=== PATIENT | female | born 1985 | race Caucasian/White ===

== ENCOUNTER 2017-08-12 11:06 | Inpatient (IN) | payer MEDICARE, OTHER ==
[2017-08-12] MEDS ORDERED: ONDANSETRON 4MG/2ML VIAL (J2405) IV ×2 (17:00)
[2017-08-12] MEDS ORDERED: diphenhydrAMINE 50 MG CAP PO ×2 (17:00)
[2017-08-12 17:25] LABS: HEMATOCRIT 30.2 % (36.0-47.0); HEMOGLOBIN 10.1 g/dl (12.0-16.0); MEAN CORPUSCULAR HEMOGLOBIN 27.6 pg (27.0-33.0); MEAN CORPUSCULAR HGB CONC 33.4 g/dl (32.0-36.5); MEAN CORPUSCULAR VOLUME 82.5 fl (80.0-96.0); PLATELET COUNT, AUTOMATED 274 10^3/uL (150-450); RED BLOOD COUNT 3.66 10^6/uL (4.00-5.40); RED CELL DISTRIBUTION WIDTH 13.2 % (11.5-14.5); WHITE BLOOD COUNT 14.1 10^3/uL (4.0-10.0)
[2017-08-12] MEDS: BETAMETHASONE SOLUSPAN 6MG/ML INJ 5ML (J0702) IM ×2 (17:48)
[2017-08-12] MEDS: AMPICILLIN SOD 2 GM in APPROPRIATE DILUENT 20 ML IV (17:48)
[2017-08-12] MEDS: PROMETHAZINE INJ 25 MG/ML VIAL (J2550) IV ×2 (18:04)
[2017-08-12] MEDS: BUTORPHANOL 2 MG/ML INJ (J0595) IV ×2 (18:04)
[2017-08-12] MEDS: LR 1,000 ML IV ×4 (18:29→18:30)
[2017-08-12] MEDS: AMPICILLIN SOD 1 GM in APPROPRIATE DILUENT 10 ML IV (22:41)
[2017-08-12] MEDS: HYDROCORTISONE 100 MG/2 ML VIAL (J1720) IV ×2 (23:30)
[2017-08-13] MEDS: AMPICILLIN SOD 1 GM in APPROPRIATE DILUENT 10 ML IV ×2 (02:00→05:41)
[2017-08-13] MEDS: LR 1,000 ML IV ×4 (02:20→10:12)
[2017-08-13] MEDS: HYDROCORTISONE 100 MG/2 ML VIAL (J1720) IV ×2 (05:30)
== END 2017-08-13 11:35 | disposition home or self-care (01) | DRG 778 ==
LOC: M LDO 11:06 → M LDI 16:18
PROVIDERS: Obstetrics & Gynecology
DX: O60.03 Preterm labor without delivery, third trimester (principal); Z3A.36 36 weeks gestation of pregnancy; F17.210 Nicotine dependence, cigarettes, uncomplicated; O99.333 Smoking (tobacco) complicating pregnancy, third trimester; K52.9 Noninfective gastroenteritis and colitis, unspecified; O99.613 Diseases of the digestive system complicating pregnancy, third trimester

== ENCOUNTER 2017-08-13 15:45 | Outpatient (CLI) | payer OTHER ==
[2017-08-13] MEDS: BETAMETHASONE SOLUSPAN 6MG/ML INJ 5ML (J0702) IM (16:36)
== END 2017-08-13 16:55 | disposition home or self-care (01) ==
LOC: M LDO 15:45
DX: O26.893 Other specified pregnancy related conditions, third trimester (principal); Z3A.36 36 weeks gestation of pregnancy
CPT/HCPCS: J0702

== ENCOUNTER 2017-08-22 01:17 | Observation (INO) | payer MEDICARE, OTHER ==
[2017-08-22] MEDS ORDERED: LACTATED RINGER'S 1000 ML IV ×2 (07:23)
[2017-08-22] MEDS: LR 1,000 ML IV ×2 (08:31)
[2017-08-22 08:45] LABS: HEMATOCRIT 29.6 % (36.0-47.0); HEMOGLOBIN 9.7 g/dl (12.0-16.0); MEAN CORPUSCULAR HEMOGLOBIN 27.2 pg (27.0-33.0); MEAN CORPUSCULAR HGB CONC 32.8 g/dl (32.0-36.5); MEAN CORPUSCULAR VOLUME 82.9 fl (80.0-96.0); PLATELET COUNT, AUTOMATED 262 10^3/uL (150-450); RED BLOOD COUNT 3.57 10^6/uL (4.00-5.40); RED CELL DISTRIBUTION WIDTH 13.6 % (11.5-14.5); WHITE BLOOD COUNT 13.8 10^3/uL (4.0-10.0)
[2017-08-22] MEDS: diphenhydrAMINE INJ 50MG/ML VIAL (J1200) IV ×2 (10:11)
[2017-08-22] MEDS: HYDROCORTISONE 100 MG/2 ML VIAL (J1720) IV ×2 (10:26)
[2017-08-22] MEDS: NICOTINE 7 MG/24 HR TRANSDERMAL TD ×2 (11:18)
== END 2017-08-22 14:15 | disposition home or self-care (01) ==
LOC: M LDO 01:17 → M LDI 07:23
PROVIDERS: Student in an Organized Health Care Education/Training Program
DX: O47.1 False labor at or after 37 completed weeks of gestation (principal); Z3A.38 38 weeks gestation of pregnancy; O9A.213 Injury, poisoning and certain other consequences of external causes complicating pregnancy, third trimester; T38.0X5A Adverse effect of glucocorticoids and synthetic analogues, initial encounter; L50.0 Allergic urticaria; O99.613 Diseases of the digestive system complicating pregnancy, third trimester; K50.90 Crohn's disease, unspecified, without complications; O99.333 Smoking (tobacco) complicating pregnancy, third trimester; F17.210 Nicotine dependence, cigarettes, uncomplicated; Z79.899 Other long term (current) drug therapy
CPT/HCPCS: J1720

== ENCOUNTER 2017-11-13 09:24 | Outpatient (RCR) | payer MEDICARE, OTHER | END 2017-11-23 | LOC: M ST 09:24 | DX: I69.391 Dysphagia following cerebral infarction (principal); I63.9 Cerebral infarction, unspecified (principal) | CPT/HCPCS: 92507 ==

== ENCOUNTER 2017-11-19 18:02 | Emergency (ER) | payer MEDICARE, OTHER ==
[2017-11-19 17:37] LABS: BASO # 0.1 10^3/uL (0.0-0.2); BASO % 0.9 % (0.0-1.0); EOS # 0.2 10^3/uL (0.0-0.50); HEMATOCRIT 32.4 % (36.0-47.0); HEMOGLOBIN 10.1 g/dl (12.0-15.5); IMMATURE GRANULOCYTE % 0.3 % (0-3.0); LYMPH # 1.1 10^3/uL (1.5-4.5); LYMPH % 16.1 % (24.0-44.0); MEAN CORPUSCULAR HEMOGLOBIN 25.4 pg (27.0-33.0); MEAN CORPUSCULAR HGB CONC 31.2 g/dl (32.0-36.5); MEAN CORPUSCULAR VOLUME 81.6 fl (80.0-96.0); MONO # 0.4 10^3/uL (0.0-0.8); MONO % 5.5 % (0.0-5.0); NEUTROPHILS # 5.1 10^3/uL (1.8-7.7); NEUTROPHILS % 74.2 % (36.0-66.0); PLATELET COUNT, AUTOMATED 322 10^3/uL (150-450); RED BLOOD COUNT 3.97 10^6/uL (4.00-5.40); RED CELL DISTRIBUTION WIDTH 15.3 % (11.5-14.5); WHITE BLOOD COUNT 6.9 10^3/uL (4.0-10.0)
[2017-11-19 17:54] LABS: INR 2.91; PROTHROMBIN TIME 31.7 SECONDS (12.4-14.5)
[2017-11-19 17:55] LABS: PARTIAL THROMBOPLASTIN TIME 54.7 SECONDS (26.8-37.9)
[2017-11-19] MEDS ORDERED: PROHANCE 279.3MG/ML 15ML VIAL (A9576) As Ordered (18:09)
[2017-11-19 18:30] LABS: ANION GAP 9 MEQ/L (8-16); BLOOD UREA NITROGEN 13 MG/DL (7-18); CALCIUM LEVEL 8.7 MG/DL (8.5-10.1); CARBON DIOXIDE LEVEL 26 MEQ/L (21-32); CHLORIDE LEVEL 110 MEQ/L (98-107); CK-MB VALUE MASS < 1.0 NG/ML (<3.6); CPK CREATINE PHOSPHOKINASE 49 U/L (26-192); CREATININE FOR GFR 0.58 MG/DL (0.55-1.30); GLOMERULAR FILTRATION RATE > 60.0 (>60); GLUCOSE, FASTING 87 MG/DL (70-100); MB/CK RELATIVE INDEX 2.04 (< OR =4); POTASSIUM SERUM 3.7 MEQ/L (3.5-5.1); SODIUM LEVEL 145 MEQ/L (136-145); TROPONIN I < 0.02 NG/ML (< 0.10)
[2017-11-19] MEDS: ONDANSETRON 4MG/2ML VIAL (J2405) IV (20:00)
[2017-11-19] MEDS: ONDANSETRON 4 MG TAB (S0181) PO (20:30)
[2017-11-19] MEDS: MECLIZINE 25 MG TABLET PO (20:45)
== END 2017-11-19 20:48 | disposition home or self-care (01) ==
LOC: M ED 18:02
DX: R42 Dizziness and giddiness (principal); K50.90 Crohn's disease, unspecified, without complications; F17.200 Nicotine dependence, unspecified, uncomplicated; Z86.73 Personal history of transient ischemic attack (TIA), and cerebral infarction without residual deficits; Z79.899 Other long term (current) drug therapy; Z79.01 Long term (current) use of anticoagulants; Z98.890 Other specified postprocedural states; Z88.8 Allergy status to other drugs, medicaments and biological substances; Z86.2 Personal history of diseases of the blood and blood-forming organs and certain disorders involving the immune mechanism
CPT/HCPCS: A9576

== ENCOUNTER → 2017-12-03 | Outpatient (CLI) | payer MEDICARE, OTHER ==
[~2017-12-03] MED LIST: ISOVUE-370 76% 100ML VIAL (Q9967) As Ordered
== END ==
LOC: M RAD 12:33
DX: I77.74 Dissection of vertebral artery (principal)
CPT/HCPCS: Q9967

== ENCOUNTER 2018-04-09 13:07 | Inpatient (IN) | payer MEDICARE, OTHER ==
[2018-04-09] MEDS: LR 1,000 ML IV (13:40)
[2018-04-09 13:46] LABS: HEMOGLOBIN 10.7 g/dl (12.0-15.5); MEAN CORPUSCULAR HEMOGLOBIN 24.7 pg (27.0-33.0); MEAN CORPUSCULAR HGB CONC 30.6 g/dl (32.0-36.5); MEAN CORPUSCULAR VOLUME 80.8 fl (80.0-96.0); PLATELET COUNT, AUTOMATED 235 10^3/uL (150-450); RED BLOOD COUNT 4.33 10^6/uL (4.00-5.40); RED CELL DISTRIBUTION WIDTH 18.1 % (11.5-14.5); WHITE BLOOD COUNT 7.2 10^3/uL (4.0-10.0)
[2018-04-09] MEDS: BUPIVACAINE HCL 0.25% 30 ML VIAL As Ordered (13:55)
[2018-04-09 13:56] LABS: CONTROL LINE HCG INT CTR LINE PRESENT; HCG, SERUM QUALITATIVE NEGATIVE (NEGATIVE)
[2018-04-09] MEDS ORDERED: LR 1,000 ML IV ×2 (15:12→17:15)
[2018-04-09] MEDS ORDERED: LIDOCAINE 2% INJ 100 MG/5 ML SDV (FOR ANES.) As Ordered (15:23)
[2018-04-09] MEDS ORDERED: PROPOFOL 200 MG/20 ML VIAL As Ordered (15:23)
[2018-04-09] MEDS ORDERED: ONDANSETRON 4MG/2ML VIAL (J2405) As Ordered ×2 (15:23→17:05)
[2018-04-09] MEDS ORDERED: KETOROLAC 60 MG/2 ML VIAL (J1885) As Ordered (15:23)
[2018-04-09] MEDS ORDERED: ROCURONIUM BROMIDE 50 MG/5 ML VIAL As Ordered (15:23)
[2018-04-09] MEDS ORDERED: NEOSTIGMINE 10 MG/10 ML VIAL (J2710) As Ordered (15:23)
[2018-04-09] MEDS ORDERED: dexameTHASONE 4 MG/ML 1ML VIAL (J1100) As Ordered (15:23)
[2018-04-09] MEDS ORDERED: GLYCOPYRROLATE INJ 0.2 MG/ML 2 ML VIAL As Ordered (15:23)
[2018-04-09] MEDS ORDERED: fentaNYL 100 MCG/2 ML INJECTION (J3010) As Ordered (15:24)
[2018-04-09] MEDS ORDERED: MIDAZOLAM INJ 2 MG/2 ML VIAL (J2250) As Ordered (15:24)
[2018-04-09] MEDS: SILVER NITRATE APPLICATOR As Ordered (16:45)
[2018-04-09] MEDS: ONDANSETRON 4MG/2ML VIAL (J2405) IV (17:08)
[2018-04-09] MEDS ORDERED: METOCLOPRAMIDE INJ 10MG/2ML VIAL (J2765) As Ordered (17:13)
[2018-04-09] MEDS ORDERED: fentaNYL 100 MCG/2 ML INJECTION (J3010) IV (17:15)
[2018-04-09] MEDS: METOCLOPRAMIDE INJ 10MG/2ML VIAL (J2765) IV (17:15)
[2018-04-09] MEDS ORDERED: PERCOCET 5MG/325MG TAB As Ordered (18:29)
[2018-04-09] MEDS: PERCOCET 5MG/325MG TAB PO (18:30)
== END 2018-04-09 19:00 | disposition home or self-care (01) | DRG 743 ==
LOC: M SDC 19:00 → M RR INP 17:03 → M OR 13:07
PROVIDERS: Obstetrics & Gynecology
PROC: 0UT78ZZ Resection of Bilateral Fallopian Tubes, Via Natural or Artificial Opening Endoscopic (ICD-10-PCS; principal; 2018-04-09 15:00)
PROC: 0U5B7ZZ Destruction of Endometrium, Via Natural or Artificial Opening (ICD-10-PCS; 2018-04-09 15:00)
DX: N92.0 Excessive and frequent menstruation with regular cycle (principal); D64.9 Anemia, unspecified; Z30.2 Encounter for sterilization

== ENCOUNTER → 2018-08-04 | Outpatient (CLI) | payer MEDICARE, OTHER ==
[~2018-08-04] MED LIST changes: +ASPI1TAB PO; +ATOR80TA59 PO; +BUDE3CAP PO; +CYCL10TA PO; +HEPA50VL SC; +HYDR-3716 PO; +HYDR1SYR IV; +IBUP-1114 PO; -ISOVUE-370 76% 100ML VIAL (Q9967) As Ordered; +LOVE0.4I2 SUBQ; +MAXA10TA14 PO; +MECL-86 PO; +MESA24CASA PO; +METH40VIAL IV; +ONDA4TAB6 PO; +ONDA4VLL IV; +ONDA8TAB7 PO; +PRENTAB9 PO; +PROT40IN4 IV; +STEL90IN SUBQ; +SUMA50TA2 PO; +TRAM100T18 PO; +TRAM1CAP15 PO; +VITA1TAB27 PO; +WARF-23 PO; +ZOFR4TAB14 PO; +ZOFR4TAB16 PO; +[UNRECOGNIZED DRUG - CODE] IJ
--- NOTE | 2018-08-04 11:19 | REP ---
BILIARY SCAN WITH GALLBLADDER EJECTION FRACTION: 08/04/2018. Comparison: CT abdomen and pelvis 09/01/2017. Reported negative gallbladder ultrasound 1 month ago and [facility]. Clinical history: Nausea, vomiting. Evaluate for biliary disease. Findings: The patient received bolus of 6.6 mCi technetium 99m mebrofenin via an IV. Sequential 5-minute images for 1 hour were obtained. Thereafter 8 ounces of Ensure consumed just prior to a second set of 60 minutes of imaging beginning 65 minutes post tracer injection. Region of interest drawn around the gallbladder and ejection fraction calculated by a semiautomated method. Findings: Prompt fairly homogeneous tracer distribution throughout the liver with appearance of activity in the gallbladder fossa at 10 minutes and in the duodenum by 15 minutes appearance into the jejunum by 20 minutes with good washout activity from the liver and progressive increase in activity in the gallbladder fossa. The gallbladder ejection fraction is calculated at 63% for 1 hour. With this technique, normal ejection fraction is greater than 35%. Impression: 1. Homogeneous prompt tracer uptake throughout the liver with prompt appearance of activity in the gallbladder and biliary to bowel transit in 20 minutes. No biliary obstruction. 2. Gallbladder ejection fraction 63%, normal. Electronically Signed by Giovanny Curtis MD 08/04/2018 07:47 P
== END ==
LOC: M RAD 07:14
PROVIDERS: ATTEND Internal Medicine
DX: R11.0 Nausea (principal)
CPT/HCPCS: 78227; A9537; J2805

== ENCOUNTER → 2018-10-16 | Outpatient (CLI) | payer MEDICARE, OTHER ==
[~2018-10-16] MED LIST changes: -ASPI1TAB PO; +ASPI81TA26 PO; +DICY10CA13 PO; +DICY10SO PO; +DOXY-350 PO; +GABA-1171 PO; +HEPA1INJ23 SC; -HEPA50VL SC; +HYDR-4571 PO; +LOVE1INJ SC; +NORC1TAB7 PO; +VITA1CAP25 PO
--- NOTE | 2018-10-16 12:49 | REP ---
Clinical: Preoperative assessment . Comparison: 11/19/2017 . Technique: PA and lateral. Findings: The mediastinum and cardiac silhouette are normal. The lung hernandez are clear and without acute consolidation, effusion, or pneumothorax. The skeletal structures are intact and normal. Impression: 1. No acute cardiopulmonary process. Electronically Signed by Percy Lopez MD 10/16/2018 12:40 P
== END ==
LOC: M RAD 12:24
PROVIDERS: ATTEND Obstetrics & Gynecology
DX: Z01.818 Encounter for other preprocedural examination (principal); N92.1 Excessive and frequent menstruation with irregular cycle

== ENCOUNTER 2018-10-21 06:09 | Inpatient (IN) | payer MEDICARE, OTHER ==
[~2018-10-21] VITALS: Ht 157.5 cm; Wt 52.2 kg
[2018-10-21] VITALS (8 sets, daily range): BP systolic 100–109; BP diastolic 50–85
[~2018-10-21 06:09] MED LIST changes: -DICY10CA13 PO; -DICY10SO PO; -HYDR-4571 PO; -LOVE1INJ SC
[2018-10-21] MEDS ORDERED: LR 1,000 ML IV ONE (06:30)
[2018-10-21 06:46] LABS: HEMATOCRIT 40.5 % (36.0-47.0); HEMOGLOBIN 13.5 g/dl (12.0-15.5); MEAN CORPUSCULAR HEMOGLOBIN 32.5 pg (27.0-33.0); MEAN CORPUSCULAR HGB CONC 33.3 g/dl (32.0-36.5); MEAN CORPUSCULAR VOLUME 97.4 fl (80.0-96.0); PLATELET COUNT, AUTOMATED 172 10^3/uL (150-450); RED BLOOD COUNT 4.16 10^6/uL (4.00-5.40); WHITE BLOOD COUNT 9.5 10^3/uL (4.0-10.0)
[2018-10-21] MEDS ORDERED: DICY10SO PO (07:04)
[2018-10-21] MEDS ORDERED: BUPIVACAINE HCL 0.5% 30 ML VIAL As Ordered ONE (07:13)
[2018-10-21] MEDS ORDERED: fentaNYL 250 MCG/5 ML INJECTION (J3010) As Ordered ONE (07:14)
[2018-10-21] MEDS ORDERED: PROPOFOL 200 MG/20 ML VIAL As Ordered ONE (07:15)
[2018-10-21] MEDS ORDERED: MIDAZOLAM INJ 2 MG/2 ML VIAL (J2250) As Ordered ONE (07:15)
[2018-10-21] MEDS ORDERED: LIDOCAINE 2% INJ 100 MG/5 ML SDV (FOR ANES.) As Ordered ONE (07:15)
[2018-10-21] MEDS ORDERED: ROCURONIUM BROMIDE 50 MG/5 ML VIAL As Ordered ONE (07:15)
[2018-10-21 08:05] LABS: HCG, SERUM QUALITATIVE NEGATIVE (NEGATIVE)
[2018-10-21 08:09] LABS: INR 0.96; PROTHROMBIN TIME 12.9 SECONDS (12.1-14.4)
[2018-10-21 08:10] LABS: PARTIAL THROMBOPLASTIN TIME 28.3 SECONDS (25.4-37.6)
[2018-10-21] MEDS ORDERED: METOCLOPRAMIDE INJ 10MG/2ML VIAL (J2765) As Ordered ONE ×2 (08:53→09:18)
[2018-10-21] MEDS ORDERED: ONDANSETRON 4MG/2ML VIAL (J2405) As Ordered ONE (08:53)
[2018-10-21] MEDS ORDERED: KETOROLAC 60 MG/2 ML VIAL (J1885) As Ordered ONE (08:53)
[2018-10-21] MEDS ORDERED: METOPROLOL 5 MG/5 ML VIAL As Ordered ONE (09:14)
[2018-10-21] MEDS ORDERED: SUGAMMADEX SODIUM 500 MG/5 ML VIAL (BRIDION) As Ordered ONE (09:46)
[2018-10-21] MEDS ORDERED: NORCO, ANEXSIA 5/325MG TABLET (HYDROcodone/ACETAMINOPHEN) PO PRN ×3 (10:30→18:15)
[2018-10-21] MEDS ORDERED: PROMETHAZINE INJ 25 MG/ML VIAL (J2550) IV PRN (10:30)
[2018-10-21] MEDS ORDERED: HYDROMORPHONE HCL 0.5 MG/ 0.5 ML SYRINGE (J1170 PER 1) IV PRN (10:45)
[2018-10-21] MEDS ORDERED: ONDANSETRON 4MG/2ML VIAL (J2405) IV PRN (10:45)
[2018-10-21] MEDS ORDERED: LR 1,000 ML IV SCH (10:45)
[2018-10-21] MEDS ORDERED: fentaNYL 100 MCG/2 ML INJECTION (J3010) IV PRN (10:45)
[2018-10-21] MEDS: DOCUSATE SODIUM 100 MG CAP PO SCH ×2 (12:00→20:20)
--- NOTE | 2018-10-21 13:02 | IPNPDOC ---
Text Note Date of Service The patient was seen on 10/21/18. NOTE spoke with pt, told her of surgery success and no complications. Vitals stable. Small amt blood on gown, no blood coming from the vagina. Routine postsurg care, likely d/c home in the AM. VS,Fishbone, I+O VS, Fishbone, I+O Laboratory Tests 10/21/18 06:28 Red Blood Count 4.16, Mean Corpuscular Volume 97.4 H, Mean Corpuscular Hem oglobin 32.5, Mean Corpuscular Hemoglobin Concent 33.3, Red Cell Distribution Width 13.9 Vital Signs Date Time Temp Pulse Resp B/P (MAP) Pulse Ox O2 Delivery O2 Flow Rate FiO2 10/21/18 12:15 99.2 99 18 109/85 (93) 99 SESSIONS,MADALYN Carranza MD October 21, 2018 13:02
--- NOTE | 2018-10-21 13:46 | RO ---
DATE OF PROCEDURE: 10/21/2018 PREPROCEDURE DIAGNOSIS: Menorrhagia, failed NovaSure ablation. POSTPROCEDURE DIAGNOSIS: Menorrhagia, failed NovaSure ablation. SURGEON: Dr. Artur Boo HEALTH SAFETY COORDINATOR: Dr. Kirit Thakkar ANESTHESIA: General endotracheal ESTIMATED BLOOD LOSS: 50 mL. DRAINS: Connor catheter with 500 mL of urine. PREOPERATIVE ANTIBIOTICS: Ancef 2 grams IV. FLUIDS REPLACED: 1100 mL of lactated Ringer's. FINDINGS: Small sized uterus, uncomplicated total laparoscopic hysterectomy. No significant scar tissue present. OPERATIVE PROCEDURE: Total laparoscopic hysterectomy. SPECIMENS: Cervix and uterus. INDICATION: The patient continued to have significant menometrorrhagia despite a NovaSure ablation, which was done approximately 6 months ago. She has also been off Coumadin for at least 4 or 5 months and with no blood thinners on board. Patient strongly desired hysterectomy. DESCRIPTION OF PROCEDURE: The operation the patient was taken to the operating room after her preoperative consent and internal medicine clearance was all reviewed. The patient agreed to undergo the procedure for which she was consented previously in the month, planned for a total laparoscopic hysterectomy. She was intubated and anesthesia was easily obtained without difficulty. She was placed in the low lithotomy position. Exam under anesthesia was performed. She was then prepped and draped in normal sterile fashion. After I performed a surgical scrub, a Connor catheter was placed and a tenaculum was placed on the anterior lip of the cervix. Small sized VCare uterine manipulator was then placed into the uterine cavity to the fundus, inflated and the speculum was removed, as well as well the tenaculum. I then changed my gloves and brought her legs down so her knees were parallel with her abdomen and the table down at waist level. I injected a small amount of 0.5% Marcaine infraumbilically and with a 5 mm incision placed the 5 mm Optiview trocar into her abdomen under direct visualization without difficulty. Low flow CO2 was noted to be insufflated and we confirmed successful intra-abdominal placement without complication and high flow was started. We then put her in Trendelenburg position and elevated the uterus and quick survey showed absent fallopian tubes consistent with her prior surgery by myself 6 months ago, normal ovaries bilaterally. No significant scar tissue or endometriosis present. Upper abdomen was likewise clear. We then placed two left lower quadrant and right lower quadrant trocars into her abdomen, both 5 mm and both under direct visualization after Marcaine bath. I then marched down her left utero-ovarian ligament with LigaSure, obtaining hemostasis along the way. I then repeated this on the right side without difficulty. We created a bladder flap by coming across the vesicouterine peritoneum, always with significant cephalad pressure on the VCare uterine manipulator. I then used a monopolar right angle Bovie hook and easily transected the vaginal fornix circumferentially, always staying within the groove provided by the green VCare uterine manipulator cervical cup. After the cervix and uterus were amputated from the vagina and hemostasis was noted, I went below and removed the uterus and cervix and VCare uterine manipulator and confirmed hemostasis from the vaginal cuff. With a sponge stick, I replaced a small amount of omentum and easily closed her vaginal cuff from her left to her right with a running locked suture of 0 Vicryl. Good support was noted and hemostasis also noted from the closure of the cuff. I then changed my gloves and returned to her abdomen, reinsufflated the abdomen and cauterized a few small serosal edge bleeders with the LigaSure. There was no significant hemorrhage. There was never fear of ureteral involvement or bowel injury throughout the case. Both ureters were noted before the case and after the case to be vermiculating in normal fashion. We removed all three trocars under direct visualization after as much CO2 was allowed to escape as possible. The 5-mm abdominal port sites were all closed with Dermabond, and I then returned below and removed her Connor catheter and with the cystoscope confirmed both ureters were indeed patent with significant flow noted bilaterally. All instruments removed. The patient was awakened from general anesthesia in stable condition and transferred to the postanesthesia care unit (PACU). All counts were correct. MTDD
[2018-10-21] MEDS: KETOROLAC 30 MG/ML VIAL (J1885) IV SCH ×2 (14:58→20:21)
[2018-10-21] MEDS ORDERED: ENOXAPARIN 40 MG/0.4 ML SYRINGE (J1650) SC SCH (16:00)
[2018-10-21] MEDS: LR 1,000 ML IV SCH ×2 (16:00→22:24)
[2018-10-21] MEDS ORDERED: DICY10CA13 PO (18:27)
[2018-10-21] MEDS: DICYCLOMINE 10 MG CAP PO SCH (20:20)
[2018-10-21] MEDS: ONDANSETRON 4MG/2ML VIAL (J2405) IV PRN (20:26)
[2018-10-21] MEDS ORDERED: CYCLOBENZAPRINE 10 MG TAB PO SCH (21:00)
[2018-10-21] MEDS ORDERED: GABAPENTIN 100 MG CAP PO SCH (21:00)
[2018-10-21] MEDS: NORCO, ANEXSIA 5/325MG TABLET (HYDROcodone/ACETAMINOPHEN) PO PRN (23:52)
[2018-10-22] VITALS: BP 98/62
[2018-10-22] MEDS: KETOROLAC 30 MG/ML VIAL (J1885) IV SCH (03:56)
[2018-10-22 04:00] VITALS: BP 97/60
[2018-10-22 07:37] LABS: BASO # 0.1 10^3/uL (0.0-0.2); BASO % 0.8 % (0.0-1.0); EOS # 0.3 10^3/uL (0.0-0.50); EOS % 4.3 % (0.0-3.0); HEMATOCRIT 35.8 % (36.0-47.0); LYMPH # 0.9 10^3/uL (1.5-4.5); LYMPH % 11.2 % (24.0-44.0); MEAN CORPUSCULAR HEMOGLOBIN 33.1 pg (27.0-33.0); MEAN CORPUSCULAR HGB CONC 33.5 g/dl (32.0-36.5); MEAN CORPUSCULAR VOLUME 98.6 fl (80.0-96.0); MONO # 0.4 10^3/uL (0.0-0.8); MONO % 5.7 % (0.0-5.0); NEUTROPHILS % 77.6 % (36.0-66.0); PLATELET COUNT, AUTOMATED 148 10^3/uL (150-450); RED BLOOD COUNT 3.63 10^6/uL (4.00-5.40); WHITE BLOOD COUNT 7.7 10^3/uL (4.0-10.0)
[2018-10-22 08:00] VITALS: BP 115/65
[2018-10-22] MEDS: DOCUSATE SODIUM 100 MG CAP PO SCH (08:17)
[2018-10-22] MEDS: DICYCLOMINE 10 MG CAP PO SCH (08:17)
[2018-10-22] MEDS: NORCO, ANEXSIA 5/325MG TABLET (HYDROcodone/ACETAMINOPHEN) PO PRN (08:19)
--- NOTE | 2018-10-22 08:35 | IPNPDOC ---
Text Note Date of Service The patient was seen on 10/22/18. NOTE POD1 [facility] States feeling well, pain controlled with prescribed meds. No heavy VB, spotting only. Ambulatory. Tolerating PO without issues. Connor out and voiding, UO adequate overnight. VSSAF NAD A&O RRR CTAB LE no C/C/E Inc's x3 soft and healing well CBC this AM stable, expected a/p: Doing well. Cont routine postop care. D/C this morning Sessions Gabriella SHAFFER, I+O Gabriella CHOWDARY I+O Laboratory Tests 10/22/18 07:20 Red Blood Count 3.63 L, Mean Corpuscular Volume 98.6 H, Mean Corpuscular Hemoglobin 33.1 H, Mean Corpuscular Hemoglobin Concent 33.5, Red Cell Distribution Width 13.5, Neutrophils (%) (Auto) 77.6 H, Lymphocytes (%) (Auto) 11.2 L, Monocytes (%) (Auto) 5.7 H, Eosinophils (%) (Auto) 4.3 H, Basophils (%) (Auto) 0.8, Neutrophils # (Auto) 6.0, Lymphocytes # (Auto) 0.9 L, Monocytes # (Auto) 0.4, Eosinophils # (Auto) 0.3, Basophils # (Auto) 0.1 Vital Signs Date Time Temp Pulse Resp B/P (MAP) Pulse Ox O2 Delivery O2 Flow Rate FiO2 10/22/18 08:19 16 10/22/18 04:00 99.0 81 97/60 (72) 99 I&O- Last 24 Hours up to 6 AM 10/22/18 06:00 Intake Total 2970 ml Output Total 525 ml Balance 2445 ml SESSIONS,MADALYN Carranza MD October 22, 2018 08:35
--- NOTE | 2018-10-22 08:38 | DS.PDOC ---
Discharge Summary General Date of Admission October 21, 2018 at 06:09 Date of Discharge [id number] Discharge Summary ADMITTING DIAGNOSES: Menometrorrhagia DISCHARGE DIAGNOSES: Same, POD1 surgery s/p [facility] HOSPITAL COURSE: Admission and surgery uncomplicated, [facility]. Postop course uncomplicated. DISCHARGE MEDICATIONS: [place], Lovenox for 14 days DISCHARGE INSTRUCTIONS: Nothing in the vagina for 3 months. F/U in OBGYN clinic in 1-2 weeks. No heavy lifting for 1-2 months. Sessions MD Vital Signs/I&Os Vital Signs Date Time Temp Pulse Resp B/P (MAP) Pulse Ox O2 Delivery O2 Flow Rate FiO2 10/22/18 08:19 16 10/22/18 04:00 99.0 81 97/60 (72) 99 I&O- Last 24 Hours up to 6 AM 10/22/18 06:00 Intake Total 2970 ml Output Total 525 ml Balance 2445 ml Laboratory Data Labs 24H Laboratory Tests 2 10/22/18 07:20: Immature Granulocyte % (Auto) 0.4, White Blood Count 7.7, Red Blood Count 3.63L, Hemoglobin 12.0, Hematocrit 35.8L, Mean Corpuscular Volume 98.6H, Mean Corpuscular Hemoglobin 33.1H, Mean Corpuscular Hemoglobin Concent 33.5, Red Cell Distribution Width 13.5, Platelet Count 148L, Neutrophils (%) (Auto) 77.6H, Lymphocytes (%) (Auto) 11.2L, Monocytes (%) (Auto) 5.7H, Eosinophils (%) (Auto) 4.3H, Basophils (%) (Auto) 0.8, Neutrophils # (Auto) 6.0, Lymphocytes # (Auto) 0.9L, Monocytes # (Auto) 0.4, Eosinophils # (Auto) 0.3, Basophils # (Auto) 0.1, Nucleated Red Blood Cells % (auto) 0.0 CBC/BMP Laboratory Tests 10/22/18 07:20 Red Blood Count 3.63 L, Mean Corpuscular Volume 98.6 H, Mean Corpuscular Hemoglobin 33.1 H, Mean Corpuscular Hemoglobin Concent 33.5, Red Cell Distribution Width 13.5, Neutrophils (%) (Auto) 77.6 H, Lymphocytes (%) (Auto) 11.2 L, Monocytes (%) (Auto) 5.7 H, Eosinophils (%) (Auto) 4.3 H, Basophils (%) (Auto) 0.8, Neutrophils # (Auto) 6.0, Lymphocytes # (Auto) 0.9 L, Monocytes # (Auto) 0.4, Eosinophils # (Auto) 0.3, Basophils # (Auto) 0.1 Discharge Medications Scheduled Aspirin (Aspirin EC) 81 Mg Tab, 81 MG PO DAILY for pain, (Reported) Atorvastatin Calcium (Atorvastatin Calcium) 80 Mg Tab, 1 TAB PO QHS, (Reported) Cholecalciferol (Vitamin D3) (Vitamin D3) 50,000 Unit Capsule, 50,000 UNIT PO QWEEK, (Reported) sun Cyclobenzaprine HCl (Cyclobenzaprine HCl) 10 Mg Tablet, 10 MG PO QHS, (Reported) Dicyclomine HCl (Dicyclomine HCl) 10 Mg Capsule, 10 MG PO QID, (Reported) Gabapentin (Gabapentin) 100 Mg Capsule, 100 MG PO DAILY, (Reported) Hydrocodone/Acetaminophen ([place] 5-325 Tablet) 1 Each Tablet, 1 TAB PO QHS, (Reported) Ustekinumab (Stelara) 90 Mg/Ml Inj, 1 ML SUBQ ASDIRECTED, (Reported) EVERY 2 MONTHS Scheduled PRN Ondansetron HCl (Ondansetron HCl) 8 Mg Tab, 8 MG PO BIDP PRN for NAUSEA, (Reported) Sumatriptan Succinate (Sumatriptan Succinate) 50 Mg Tab, 50 MG PO PRN PRN for MIGRAINE, (Reported) Allergies Coded Allergies: prednisone (Verified Allergy, Mild, HIVES, 08/22/18) scopolamine (Verified Allergy, Unknown, HIVES, 08/22/18) MADALYN COMBS MD October 22, 2018 08:38
[2018-10-22] MEDS ORDERED: LOVE1INJ SC (08:41)
[2018-10-22] MEDS ORDERED: HYDR-4571 PO (08:41)
[2018-10-22] MEDS: ONDANSETRON 4MG/2ML VIAL (J2405) IV PRN (09:26)
== END 2018-10-22 11:23 | disposition home or self-care (01) | DRG 743 ==
LOC: M OR 06:09 → M PED 11:30
PROVIDERS: ADMIT Obstetrics & Gynecology; ATTEND Obstetrics & Gynecology
PROC: 0UTC8ZZ Resection of Cervix, Via Natural or Artificial Opening Endoscopic (ICD-10-PCS; 2018-10-21)
PROC: 0UT98ZZ Resection of Uterus, Via Natural or Artificial Opening Endoscopic (ICD-10-PCS; principal; 2018-10-21 07:30)
DX: N92.0 Excessive and frequent menstruation with regular cycle (principal); Z79.82 Long term (current) use of aspirin; Z79.899 Other long term (current) drug therapy; Z88.8 Allergy status to other drugs, medicaments and biological substances; D50.9 Iron deficiency anemia, unspecified; N94.4 Primary dysmenorrhea

== ENCOUNTER → 2021-11-23 | Outpatient (REF) ==
[~2021-11-23] MED LIST changes: +BOTO200I IJ; +CYCL-707 PO; -CYCL10TA PO; +DICY10CA13 PO; +DICY10SO PO; +HYDR-4571 PO; +LOVE1INJ SC; +ONDA-84 PO; -ONDA8TAB7 PO; +TRAM100T14 PO; -TRAM100T18 PO
== END ==
LOC: M PLAIMG 09:52
PROVIDERS: ATTEND Internal Medicine
DX: R06.02 Shortness of breath (principal)